=== PATIENT | female | born 1995 | race Caucasian/White ===

== ENCOUNTER 2017-08-12 12:29 | Emergency (ER) | payer OTHER, BC ==
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
[2017-08-12 14:16] VITALS: BP 136/75
== END 2017-08-12 14:14 | disposition home or self-care (01) ==
LOC: ED 12:29
DX: S00.83XA Contusion of other part of head, initial encounter (principal); Y08.89XA Assault by other specified means, initial encounter
CPT/HCPCS: 99282; 99283

== ENCOUNTER 2018-03-23 12:37 | Emergency (ER) | payer BC, OTHER ==
[2018-03-23 13:19] LABS: BILIRUBIN,URINE NEGATIVE (NEGATIVE); GLUCOSE, URINE (UA) NEGATIVE (NEGATIVE); KETONES,URINE (UA) 15 mg/dL (NEGATIVE); LEUKOCYTE ESTERASE, URINE NEGATIVE (NEGATIVE); NITRITE,URINE NEGATIVE (NEGATIVE); OCCULT BLOOD,URINE NEGATIVE (NEGATIVE); PROTEIN,URINE NEGATIVE (NEGATIVE); UROBILINOGEN,URINE 0.2 (NORMAL) E.U./dL (NORMAL)
[2018-03-23 13:20] LABS: CLARITY,URINE CLEAR (CLEAR); HCG UR QUAL NEGATIVE
[2018-03-23 13:40] LABS: BASOPHILS % (AUTO) 0.2 %; EOSINOPHILS % (AUTO) 0.4 %; HGB - HEMOGLOBIN 13.9 g/dL (12.0-16.0); LYMPHOCYTES # (AUTO) 1.8 10^3/uL (1.5-3.5); LYMPHOCYTES % (AUTO) 14.5 %; MEAN CORPUSCULAR HEMOGLOBIN 30.3 pg (27.0-31.0); MEAN CORPUSCULAR HGB CONC 33.7 g/dL (32.0-36.0); MEAN PLATELET VOLUME 8.7 fL (7.9-10.8); MONOCYTES # (AUTO) 0.6 10^3/uL (0.0-1.0); MONOCYTES % (AUTO) 4.9 %; NEUTROPHILS # (AUTO) 9.7 10^3/uL (1.5-6.6); PLT - PLATELET COUNT 211 10^3/uL (130-450); RED BLOOD COUNT 4.58 10^6/uL (4.20-5.40); WHITE BLOOD COUNT 12.1 x10^3/uL (4.8-10.8)
[2018-03-23 13:52] LABS: ALBUMIN 4.8 g/dL (3.2-5.5); ALBUMIN/GLOBULIN RATIO 1.4 (1.0-2.2); BILIRUBIN,TOTAL 0.9 mg/dL (0.2-1.0); CALCIUM 9.4 mg/dL (8.5-10.3); CREATININE 0.6 mg/dL (0.4-1.0); TOTAL PROTEIN 8.2 g/dL (6.7-8.2)
[2018-03-23] MEDS ORDERED: ONDANSETRON 4 MG/2 ML VIAL IVP STA (14:05)
[2018-03-23] MEDS ORDERED: MORPHINE 2 MG/ML CARPUJECT IVP STA (14:05)
[2018-03-23] MEDS ORDERED: SODIUM CHLORIDE 0.9% 1,000 ML IV ONE (14:05)
--- NOTE | 2018-03-23 14:14 | ED Physician Documentation ---
PD HPI ABD PAIN - Stated complaint Stated Complaint: ABD PX/VOMITING - Chief complaint Chief Complaint: Abd Pain - History obtained from History obtained from: Patient - History of Present Illness Timing - onset: Yesterday Timing - duration: Days (1) Timing - details: Gradual onset (She had an onset of periumbilical to right lower quadrant pain starting yesterday which persisted and increased through the night. It was associated with the onset of nausea and vomiting overnight. She had a feeling of slight chills but no distinct fever. She has not had any dysuria. She denies any vaginal discharge or bleeding. Her last menstrual period was end of January. She does not have any concerns for STDs.) Quality: Cramping, Aching Location: RLQ Radiation: No: Lower back, Right flank Worsened by: Eating, Position, Palpation. No: Breathing Associated symptoms: Nausea, Vomiting, Loss of appetite. No: Fever, Diarrhea, Constipation, Dysuria, Chest pain Similar symptoms before: Has not had sx before Recently seen: Not recently seen Review of Systems Constitutional: reports: Chills. denies: Fever, Myalgias Nose: denies: Rhinorrhea / runny nose, Congestion Throat: denies: Sore throat Respiratory: denies: Cough GI: reports: Abdominal Pain, Nausea, Vomiting. denies: Constipation, Diarrhea : denies: Dysuria, Frequency, Discharge Skin: denies: Rash, Lesions PD PAST MEDICAL HISTORY - Past Medical History Cardiovascular: None Respiratory: None Endocrine/Autoimmune: None - Past Surgical History Past Surgical History: Yes HEENT: Other - Present Medications Home Medications: Ambulatory Orders Medication Instructions Recorded Confirmed Multivit-Minerals/Folic Acid 1 cap PO DAILY 08/12/17 08/12/17 [Centrum Multigummies] HYDROcod/ACETAM 5/325 [[place] 5/325] 1 tab PO Q6H PRN #15 tablet 03/23/18 Naproxen 375 mg PO BID #20 tablet 03/23/18 Ondansetron Odt [Zofran] 4 mg TL Q6H PRN #15 tablet 03/23/18 - Allergies Allergies/Adverse Reactions: Allergies Allergy/AdvReac Type Severity Reaction Status Date / Time Penicillins AdvReac Unknown Verified 08/12/17 12:54 - Social History Does the pt smoke?: Yes Smoking Status: Current every day smoker Does the pt drink ETOH?: Yes Does the pt have substance abuse?: Yes - Immunizations Immunizations are current?: Yes PD ED PE NORMAL - Vitals Vital signs reviewed: Yes - General General: Alert and oriented X 3, Well developed/nourished - HEENT HEENT: Ears normal, Moist mucous membranes, Pharynx benign - Neck Neck: Supple, no meningeal sign, No adenopathy - Cardiac Cardiac: RRR, No murmur - Respiratory Respiratory: Clear bilaterally - Abdomen Abdomen: Normal bowel sounds, Soft, Non distended, No organomegaly, Other (RLQ tender at [place]Burneys point. With focal percussion tenderness. Some referred tenderness from LLQ. ) - Rectal Rectal: Deferred - Back Back: No CVA TTP - Derm Derm: Normal color - Extremities Extremities: No deformity, No tenderness to palpate - Neuro Neuro: Alert and oriented X 3, No motor deficit, Normal speech Results - Vitals Vitals: Vital Signs - 24 hr 03/23/18 03/23/18 03/23/18 12:55 16:39 17:14 Temperature 36.4 C L 37.4 C 37.4 C Heart Rate 65 79 61 Respiratory 17 18 18 Rate Blood Pressure 123/68 116/74 125/80 O2 Saturation 100 96 99 Oxygen O2 Source Room air - Labs Labs: Laboratory Tests 03/23/18 03/23/18 03/23/18 13:00 13:10 13:10 WBC 12.1 H RBC 4.58 Hgb 13.9 Hct 41.2 MCV 90.0 MCH 30.3 MCHC 33.7 RDW 13.0 Plt Count 211 MPV 8.7 Neut # (Auto) 9.7 H Lymph # (Auto) 1.8 [place] # (Auto) 0.6 Eos # (Auto) 0.0 Baso # (Auto) 0.0 Absolute Nucleated RBC 0.00 Nucleated RBC % 0.0 Sodium 137 Potassium 3.7 Chloride 102 Carbon Dioxide 24 Anion Gap 11.0 BUN 9 Creatinine 0.6 Estimated GFR (MDRD) 124 Glucose 114 H Calcium 9.4 Total Bilirubin 0.9 AST 22 ALT 16 Alkaline Phosphatase 46 Total Protein 8.2 Albumin 4.8 Globulin 3.4 Albumin/Globulin Ratio 1.4 Lipase 27 Urine Color YELLOW Urine Clarity CLEAR Urine pH 7.0 Ur Specific Downs 1.010 Urine Protein NEGATIVE Urine Glucose (UA) NEGATIVE Urine Ketones 15 H Urine Occult Blood NEGATIVE Urine Nitrite NEGATIVE Urine Bilirubin NEGATIVE Urine Urobilinogen 0.2 (NORMAL) Ur Leukocyte Esterase NEGATIVE Ur Microscopic Review NOT INDICATED Urine Culture Comments NOT INDICATED Urine HCG, Qual NEGATIVE - Rads (name of study) pelvic U/S Radiology: Prelim report reviewed (large 10 cm hemorrhagic cyst right ovary. No free fluid. Normal blood flow to ovary. ) PD MEDICAL DECISION MAKING - ED course Complexity details: reviewed results, re-evaluated patient (large cyst right ovary. Presume cause of the pain. She is moving to [place] with sign other tomorrow. So not really time for follow up. She would not want surgery or such today (offered to [facility] CODE AND TEST CLERK consult). ), considered differential (concern for appendicitis, ovarian process, UTI, stone), d/w patient - Sepsis Event Vital Signs: Vital Signs - 24 hr 03/23/18 03/23/18 03/23/18 12:55 16:39 17:14 Temperature 36.4 C L 37.4 C 37.4 C Heart Rate 65 79 61 Respiratory 17 18 18 Rate Blood Pressure 123/68 116/74 125/80 O2 Saturation 100 96 99 Oxygen O2 Source Room air Departure - Departure Disposition: Home, Self Care Clinical Impression: Hemorrhagic cyst of right ovary Abdominal pain Qualifiers: Abdominal location: right lower quadrant Qualified Code(s): R10.31 - Right lower quadrant pain Condition: Stable Record reviewed to determine appropriate education?: Yes Instructions: ED Cyst Ovarian Prescriptions: HYDROcod/ACETAM 5/325 [[place] 5/325] 1 tab PO Q6H PRN #15 tablet PRN Reason: Pain Naproxen 375 mg PO BID #20 tablet Ondansetron Odt [Zofran] 4 mg TL Q6H PRN #15 tablet PRN Reason: Nausea / Vomiting Comments: Drink lots of fluids. Naproxen or ibuprofen twice daily for inflammation. Add Tylenol or hydrocodone if needed for pain. Ondansetron if needed for nausea. Follow-up for care in [place] when you are there and a couple of days if you have persisting pains or worsening pains. If you improve, then look at follow- up ultrasound in about a month to see if the cyst has improved or gone away. Discharge Date/Time: 03/23/18 17:29
--- NOTE | 2018-03-23 16:14 | Ultrasound Report ---
Reason: RLQ pain onset yesterday Procedure Date: 03/23/2018 Accession Number: [id number] / [id number] Procedure: US - Abdomen Limited CPT Code: FULL RESULT: EXAM: ABDOMEN ULTRASOUND LIMITED, RIGHT LOWER QUADRANT EXAM DATE: 03/23/2018 03:02 PM. CLINICAL HISTORY: Right lower quadrant pain. COMPARISON: None. TECHNIQUE: Real-time scanning was performed with static images obtained. FINDINGS: Ultrasound imaging of the right lower quadrant region demonstrates nonvisualization of the appendix. There is no free fluid identified. The right ovary is enlarged demonstrating a dominant complex cyst in the right ovary with appearance suggesting probable hemorrhagic cyst. IMPRESSION: 1. Appendix not visualized. No free fluid. 2. Probable hemorrhagic cyst of the right ovary. RADIA
--- NOTE | 2018-03-23 16:25 | Ultrasound Report ---
Reason: lower abd pain onset yesterday Procedure Date: 03/23/2018 Accession Number: [id number] / [id number] Procedure: US - Pelvic Complete CPT Code: FULL RESULT: EXAM: PELVIC ULTRASOUND EXAM DATE: 03/23/2018 03:06 PM. CLINICAL HISTORY: Right lower quadrant pain. COMPARISON: ABDOMEN LIMITED 03/23/2018. TECHNIQUE: Realtime transabdominal pelvic scan performed to identify the uterus and adnexa and as an overview of other pelvic structures, followed by transvaginal scan to provide greater detail of the uterus and adnexa, with static image documentation. FINDINGS: Uterus: 7.7 x 3.0 x 4.6 cm. Anteverted position. Normal overall size and echotexture. Masses: None. Endometrium: 7 mm. Normal. Cervix: Unremarkable. Right Ovary: 9.0 x 10.3 x 5.6 cm. The right ovary is enlarged with large complex cyst measuring up to 10.0 cm with appearance characteristic for hemorrhagic cyst. Normal blood flow. Left Ovary: 3.2 x 1.8 x 1.7 cm Normal echotexture and blood flow. Free Fluid: None. Other: None. IMPRESSION: 1. Large hemorrhagic cyst in the right ovary measuring up to 10.0 cm. Recommend follow-up ultrasound in 6-12 weeks to ensure resolution per recommended guidelines. 2. Normal uterus and left ovary. RADIA
[2018-03-23] MEDS ORDERED: ONDANSETRON ODT 4 MG TABLET TL STA (16:55)
[2018-03-23] MEDS ORDERED: NAPROXEN 250 MG TABLET PO STA (16:56)
[2018-03-23] MEDS ORDERED: HYDROcod/ACETAM 5/325 MG TABLET PO STA (16:56)
[2018-03-23 17:15] VITALS: BP 125/80
== END 2018-03-23 17:29 | disposition home or self-care (01) ==
LOC: ED 12:37
DX: N83.201 Unspecified ovarian cyst, right side (principal); F17.200 Nicotine dependence, unspecified, uncomplicated
CPT/HCPCS: 36415; 76705; 76856; 80053; 81003; 81025; 83690; 85025; 99283; A9270; Q0162; 81001; 87086